=== PATIENT | male | born 1975 | race Two or more races ===

== ENCOUNTER 2018-03-03 20:38 | Emergency (ER) | payer OTHER ==
[~2018-03-03] VITALS: Ht 180.3 cm; Wt 93.0 kg
[2018-03-03 21:19] VITALS: BP 133/76
== END 2018-03-03 21:20 | disposition home or self-care (01) ==
LOC: ER 20:41
DX: S20.212A Contusion of left front wall of thorax, initial encounter (principal); W10.9XXA Fall (on) (from) unspecified stairs and steps, initial encounter; Y92.89 Other specified places as the place of occurrence of the external cause; Y93.89 Activity, other specified; Y99.8 Other external cause status
CPT/HCPCS: 71045; 99283; A4663